=== PATIENT | female | born 1975 | race African-American/Black ===

== ENCOUNTER 2017-01-13 10:42 | Emergency (ER) | payer OTHER ==
[~2017-01-13] VITALS: Ht 167.6 cm; Wt 130.5 kg
[~2017-01-13 10:42] MED LIST: AMLODIPINE BESY10 MG PO; METOPROLOL TART50 MG PO
[2017-01-13] MEDS ORDERED: LOPRESSOR25 MG PO (17:11)
[2017-01-13 17:42] VITALS: BP 209/130
== END 2017-01-13 17:42 | disposition home or self-care (01) ==
LOC: EME 10:42
DX: I10 Essential (primary) hypertension (principal); B34.9 Viral infection, unspecified; J02.9 Acute pharyngitis, unspecified; R51 Headache; Z72.0 Tobacco use
CPT/HCPCS: 70450; 87651 90; 99281; 99283

== ENCOUNTER 2017-01-15 09:36 | Emergency (ER) | payer OTHER ==
[~2017-01-15] VITALS: Ht 167.6 cm; Wt 128.5 kg
[~2017-01-15 09:36] MED LIST changes: +LOPRESSOR25 MG PO
[2017-01-15 12:04] LABS: EOSINOPHIL (%) 3.7 % (0-5); EOSINOPHIL COUNT 0.1 K/uL (0-0.3); HEMATOCRIT 44.9 % (36.0-46.0); IMMATURE GRANULOCYTE (%) 0.3 % (0.0-0.7); INSTRUMENT ABS NEUTROPHIL CT 1.1 K/uL; LYMPHOCYTE COUNT 1.4 K/uL (1.0-2.8); MCH 26.7 PG (29.0-34.0); MCHC 31.8 G/DL (30.0-36.0); MCV 83.8 FL (83-99); MEAN PLAT.VOLUME 10.8 uM^3 (9.5-12.4); MONOCYTE (%) 13.6 % (3-12); MONOCYTE COUNT 0.4 K/uL (0-0.8); NEUTROPHIL (%) 35.6 % (45-76); NEUTROPHIL COUNT 1.1 K/uL (1.8-6.4); PLATELET COUNT 204 K/uL (156-360); RBC DIS.WIDTH-CV 14.8 % (11.8-14.6); RBC DIS.WIDTH-SD 45.3 % (39-53); RED BLOOD COUNT 5.36 M/uL (3.80-5.20)
[2017-01-15 12:17] LABS: CHLORIDE 103 mEq/L (99-109); POTASSIUM 2.7 mEq/L (3.7-5.4); SODIUM 139 mEq/L (136-147)
[2017-01-15 12:19] LABS: GLUCOSE 86 mg/dL (70-99)
[2017-01-15 12:20] LABS: ANION GAP 9 MEQ/L (2-14)
[2017-01-15 12:23] LABS: GFR ESTIMATE (CALCULATED) > 59 mL/min/; UREA NITROGEN (BUN) 9 mg/dL (9-23)
[2017-01-15 17:41] LABS: CHLORIDE 102 mEq/L (99-109); POTASSIUM 3.2 mEq/L (3.7-5.4); SODIUM 141 mEq/L (136-147)
[2017-01-15 17:43] LABS: GLUCOSE 109 mg/dL (70-99)
[2017-01-15 17:44] LABS: ANION GAP 8 MEQ/L (2-14)
[2017-01-15] MEDS ORDERED: K-DUR20 MEQ PO (17:46)
[2017-01-15 17:47] LABS: GFR ESTIMATE (CALCULATED) > 59 mL/min/
[2017-01-15 17:48] LABS: UREA NITROGEN (BUN) 9 mg/dL (9-23)
[2017-01-15 18:18] VITALS: BP 172/116
== END 2017-01-15 18:20 | disposition home or self-care (01) ==
LOC: EME 09:36
PROVIDERS: Emergency Medicine
DX: I10 Essential (primary) hypertension (principal); E87.6 Hypokalemia; R51 Headache; R42 Dizziness and giddiness; R11.2 Nausea with vomiting, unspecified; F17.200 Nicotine dependence, unspecified, uncomplicated
CPT/HCPCS: 80048; 80048 91; 85025; 99281; 99284

== ENCOUNTER 2017-08-23 15:18 | Emergency (ER) | payer OTHER ==
[~2017-08-23] VITALS: Ht 167.6 cm; Wt 132.2 kg
[~2017-08-23 15:18] MED LIST changes: +K-DUR20 MEQ PO
[2017-08-23 17:50] LABS: HEMATOCRIT 45.1 % (36.0-46.0); HEMOGLOBIN 14.9 G/DL (11.9-15.5); MCH 27.3 PG (29.0-34.0); MCV 82.8 FL (83-99); PLATELET COUNT 226 K/uL (156-360); RBC DIS.WIDTH-CV 15.4 % (11.8-14.6); RBC DIS.WIDTH-SD 46.6 % (39-53); RED BLOOD COUNT 5.45 M/uL (3.80-5.20); WHITE BLOOD COUNT 6.1 K/uL (4.1-10.2)
[2017-08-23 18:01] LABS: CHLORIDE 100 mEq/L (99-109); POTASSIUM 2.8 mEq/L (3.7-5.4); SODIUM 138 mEq/L (136-147)
[2017-08-23 18:02] LABS: GLUCOSE 86 mg/dL (70-99)
[2017-08-23 18:06] LABS: CREATININE 0.8 mg/dL (0.6-1.3)
[2017-08-23 18:07] LABS: UREA NITROGEN (BUN) 11 mg/dL (9-23)
[2017-08-23 18:09] LABS: GFR ESTIMATE (CALCULATED) > 59 mL/min/
[2017-08-23 18:11] LABS: TROP-I INTERPRETATION NEGATIVE; TROPONIN-I < 0.01 ng/mL (0.0-0.30)
[2017-08-23 20:57] LABS: MAGNESIUM 1.9 mg/dL (1.3-2.7)
[2017-08-24 00:25] LABS: CHLORIDE 103 mEq/L (99-109); POTASSIUM 2.9 mEq/L (3.7-5.4); SODIUM 138 mEq/L (136-147)
[2017-08-24 00:27] LABS: GLUCOSE 102 mg/dL (70-99)
[2017-08-24 00:30] LABS: CREATININE 0.8 mg/dL (0.6-1.3); GFR ESTIMATE (CALCULATED) > 59 mL/min/
[2017-08-24 00:31] LABS: UREA NITROGEN (BUN) 13 mg/dL (9-23)
[2017-08-24] MEDS ORDERED: ZITHROMAX Z-PA250 MG PO (00:45)
[2017-08-24] MEDS ORDERED: CHERATUSSIN AC473 ML PO (00:45)
[2017-08-24] MEDS ORDERED: K-DUR20 MEQ PO (00:48)
[2017-08-24 01:27] VITALS: BP 175/116
== END 2017-08-24 00:58 | disposition home or self-care (01) ==
LOC: EME 15:18
PROVIDERS: Physician Assistant
DX: J01.90 Acute sinusitis, unspecified (principal); E87.6 Hypokalemia; I10 Essential (primary) hypertension; Z87.891 Personal history of nicotine dependence; Z88.0 Allergy status to penicillin
CPT/HCPCS: 71046; 80048; 80048 91; 83735; 84484; 85027; 87502; 93005; 99281; 99285; J3480; J7030